=== PATIENT | female | born 1940 | race African-American/Black ===

== ENCOUNTER 2017-12-09 15:51 | Outpatient (CLI) | payer MEDICARE | END 2017-12-09 15:52 | disposition home or self-care (01) | LOC: BICMAMMO 15:51 | PROVIDERS: ATTEND Family Medicine | DX: Z12.31 Encounter for screening mammogram for malignant neoplasm of breast (principal) | CPT/HCPCS: 77063; 77067 ==

== ENCOUNTER 2019-08-17 07:06 | Observation (INO) | payer MEDICARE ==
--- NOTE | 2019-08-17 07:54 | RAD ---
EXAM: Chest Two Views 08/17/2019 7:51 AM HISTORY: Chest pain COMPARISON: October 23, 2011 FINDINGS: Heart: Stable mild cardiomegaly Pulmonary vessels: Stable mild pulmonary vascular congestion Costophrenic angles: Clear. Lungs: No acute airspace consolidation. Pneumothorax: None. Osseous structures:Intact. Additional findings: None. IMPRESSION: Cardiomegaly with mild pulmonary vascular congestion.
[2019-08-17 07:56] LABS: #Eosinphils 0.1 thou/uL (0.0-0.7); #Lymphocytes 2.1 thou/uL (1.20-3.40); #Monocytes 0.3 thou/uL (0.11-0.59); #Neutrophils 3.1 thou/uL (1.40-6.50); %Basophils 0.7 % (0.0-1.0); %Eosinophils 2.2 % (0.0-10.0); %Lymphocytes 36.4 % (21.0-51.0); %Monocytes 5.8 % (0.0-10.0); Mean Corpuscular HGB CONC 33.5 g/dL (32.0-36.0); Mean Corpuscular Hemoglobin 30.3 pg (27.0-31.0); Mean Corpuscular Volume 90.5 fL (78.0-98.0); Platelet Count 188 thou/uL (130-400); RBC Distribution Width 12.9 % (11.5-14.5); Red Blood Cell (RBC) Count 4.62 mill/uL (4.20-5.40); White Blood Cell (WBC) Count 5.6 thou/uL (4.8-10.8)
[2019-08-17 08:06] LABS: ALT (SGPT) 8 U/L (8-55); AST (SGOT) 14 U/L (5-34); Albumin 3.9 g/dL (3.4-4.8); Alkaline Phosphatase 114 U/L (40-110); Anion Gap 12 mmol/L (10-20); BUN (Urea Nitrogen) 28 mg/dL (9.8-20.1); Bilirubin, Total 0.5 mg/dL (0.2-1.2); CK (CPK) 54 U/L (29-168); Calc. Creatinine Clearance 0 mL/min (70-130); Calcium 9.7 mg/dL (7.8-10.44); Carbon Dioxide 26 mmol/L (23-31); Chloride 106 mmol/L (98-107); Estimated GFR-MDRD 47; Globulin 4.4 g/dL (2.4-3.5); Glucose 131 mg/dL (83-110); Magnesium 1.9 mg/dL (1.6-2.6); Potassium 3.3 mmol/L (3.5-5.1); Protein, Total 8.3 g/dL (6.0-8.3); Sodium 141 mmol/L (136-145)
[2019-08-17] MEDS ORDERED: Magnesium 2 GM/50 ML BAG (IN WATER) ONE (08:15)
[2019-08-17 08:26] LABS: CKMB 1.9 ng/mL (0-6.6)
[2019-08-17] MEDS ORDERED: Aspirin Chewable 81 MG TAB ONE (09:48)
[2019-08-17 11:11] LABS: Troponin I 0.072 ng/mL (< 0.028)
[2019-08-17] MEDS ORDERED: HYDROcodone/Acetaminophen 5/325 mg Tablet PO PRN ×2 (13:23)
[2019-08-17] MEDS ORDERED: Acetaminophen 325 MG TAB PO PRN ×2 (13:23→15:39)
[2019-08-17] MEDS ORDERED: Ondansetron ODT 4 MG TAB SL PRN (13:23)
[2019-08-17] MEDS ORDERED: Ondansetron PF 4 MG/2 ML Vial IVP PRN ×2 (13:23→15:39)
[2019-08-17] MEDS ORDERED: FLU VACC TS2019-20(65YR UP)/PF 180 MCG/0.5 ML SYRINGE IM ONE (13:30)
[2019-08-17 14:00] LABS: Troponin I 0.062 ng/mL (< 0.028)
[2019-08-17] MEDS ORDERED: Dextrose 5% in Water 1,000 ML IV PRN (15:39)
[2019-08-17] MEDS ORDERED: HumaLOG 300 UNITS/3 ML VIAL SC PRN ×2 (15:39)
[2019-08-17] MEDS ORDERED: Ondansetron ODT 4 MG TAB PO PRN (15:39)
[2019-08-17] MEDS ORDERED: Dextrose 50% Abboject 50 ML SYRINGE SLOW IVP PRN (15:39)
[2019-08-17] MEDS ORDERED: hydrALAZINE 20 MG/ML VIAL SLOW IVP PRN (15:39)
[2019-08-17 16:52] LABS: Free T4 (Free Thyroxine) 1.08 ng/dL (0.70-1.48); Thyroid Stimulating Hormone 1.3623 uIU/mL (0.35-4.94)
[2019-08-17 17:15] VITALS: BMI 27.8
--- NOTE | 2019-08-17 18:10 | CON ---
DATE OF CONSULTATION: 08/17/2019 REASON FOR CONSULTATION: Atrial fibrillation with RVR. HISTORY OF PRESENT ILLNESS: Ms. Infante is a pleasant 79-year-old female, who comes to the hospital for chest pain. She was seen in the ER and found to be in atrial fibrillation with RVR. She was started on Cardizem, and eventually she converted back to sinus rhythm on her own. Cardiology has been consulted for further evaluation and care. She has a history of stroke, appears to be lacunar secondary to uncontrolled hypertension. This in 2011. This is the first time she has ever been told she has atrial fibrillation or that it has ever been captured. Currently, she denies any chest pain, tightness, or pressure. No shortness of breath. She feels back to normal. PAST MEDICAL HISTORY: 1. History of CVA in 2011. Right-sided deficits. 2. Hypertension. 3. Type 2 diabetes. 4. Hyperlipidemia. 5. CVA. 6. Chronic kidney disease stage 3. SOCIAL HISTORY: , lives at home with family. No alcohol, tobacco, or drugs. OUTPATIENT MEDICATIONS: 1. Carvedilol 25 mg b.i.d. 2. Clonidine 0.1 mg p.o. t.i.d. 3. Simvastatin 10 mg q.p.m. 4. Lisinopril 40 mg a day. 5. Isosorbide mononitrate 60 mg a day. 6. Furosemide 20 mg b.i.d. 7. Clopidogrel 75 mg a day. 8. Trazodone 50 mg at bedtime. 9. Hydralazine 100 mg p.o. t.i.d. ALLERGIES: NO KNOWN DRUG ALLERGIES. PAST SURGICAL HISTORY: 1. Total knee replacement twice. 2. Hysterectomy. 3. Cholecystectomy. 4. Tubal ligation. FAMILY HISTORY: Early coronary artery disease in several family members. REVIEW OF SYSTEMS: A 12-point review of systems was done and was all negative unless stated in the history of present illness. PHYSICAL EXAMINATION: VITAL SIGNS: Temperature 97.2, pulse 57, respiratory rate 16, saturation 96% on room air, blood pressure 119/56. GENERAL: Awake, alert, oriented x3. No distress. HEENT: Normocephalic and atraumatic. NECK: Supple. LUNGS: Clear. CARDIOVASCULAR: S1 and S2. No S3 or S4. No murmurs. ABDOMEN: Soft. Positive bowel sounds. EXTREMITIES: No edema. SKIN: Warm and dry. LABORATORY DATA: Laboratory work was reviewed. CBC and chemistries were unremarkable except for potassium mildly low at 3.3, BUN 28, creatinine 1.3, GFR of 47. Troponin was in the indeterminate range of 0.03, 0.07, 0.06. TSH and free T4 were normal. Chest x-ray was unremarkable. ASSESSMENT AND PLAN: 1. New-onset atrial fibrillation, paroxysmal. 2. Rxcfs-[id number] systolic versus diastolic heart failure. 3. History of cerebrovascular accident. 4. Hypertension. PLAN: 1. Her CHADS-VASc score is at least 6 secondary to history of CVA female, hypertension, and age above 79. She would be a candidate for full anticoagulation. I will start Eliquis 5 mg twice a day. 2. We will await echocardiogram results before deciding on any antiarrhythmic therapy. Just continuing the current beta-bert dose. 3. We will start anticoagulation today with full-dose subcu Lovenox, and we will switch to Eliquis 5 mg b.i.d. on discharge. Concern is that if she has a low EF, she may need a heart catheterization sooner. Thank you for letting me to participate in the care of your patient. We will follow up. Job ID: [id number]
[2019-08-17] MEDS ORDERED: traZODone HCl 50 MG TAB PO SCH (21:00)
[2019-08-17] MEDS ORDERED: Simvastatin 20 MG TAB PO SCH (21:00)
[2019-08-17] MEDS ORDERED: Apixaban 5 MG TAB PO SCH (21:00)
[2019-08-17] MEDS: Furosemide 20 MG TAB PO SCH (21:09)
[2019-08-17] MEDS: Famotidine 20 MG TAB PO SCH (21:09)
[2019-08-17] MEDS: Enoxaparin Sodium 60 MG/0.6 ML SYRINGE SC SCH (21:09)
--- NOTE | 2019-08-17 21:11 | HP ---
PRIMARY CARE PHYSICIAN: Titus Rebollar MD CHIEF COMPLAINT: Chest pain. HISTORY OF PRESENT ILLNESS: Ms. Infante is a very pleasant 79-year-old female, who has a history of hypertension and diabetes mellitus type 2. She also has a history of a previous stroke about 7 years ago, which left her with right-sided weakness. She was in her usual state of health until 2 a.m. this morning. She says she awoke from sleep with pain in her chest. She says it was real bad and is like a real bad aching. She rated it about 8/10. She noticed a similar pain up into her jaw. She denies having any shortness of breath. There was no nausea, no vomiting. She did note some palpitations however. There was no dizziness, no lightheadedness. The pain continued until her daughter came to check on her. This was around 6:30. The pain was still there and she was brought to the emergency room. There, they gave her 4 aspirins and she says the medicine she believes for her potassium and the pain started to get better. Currently, she is chest-pain free. She also denies any PND. No orthopnea. No lower extremity edema. She has not had any episodes like this before that she is aware of. When she was seen in the ER, she was found to be in atrial fibrillation with rapid ventricular response. It appears as if she spontaneously converted and is being placed on observation for further evaluation. REVIEW OF SYSTEMS: All systems were reviewed and are negative except for that mentioned in the history of present illness. PAST MEDICAL HISTORY: Significant for hypertension, diabetes, cerebrovascular disease with right-sided weakness, chronic kidney disease, stage 3. ALLERGIES: NO KNOWN DRUG ALLERGIES. PAST SURGICAL HISTORY: She has had a total knee replacement x2, hysterectomy, cholecystectomy, cataract surgery, bilateral tubal ligation, and hysterectomy. SOCIAL HISTORY: She is . She is a nonsmoker and nondrinker. Her daughter lives with her and she has 3 children. Her daughter, Brittny is the surrogate decision maker and she would like to be a full code. FAMILY HISTORY: Significant for diabetes, hypertension, and heart disease. CURRENT MEDICATIONS: Include; 1. Carvedilol 25 mg twice daily. 2. Clonidine 0.1 mg t.i.d. 3. Simvastatin 20 mg p.o. at bedtime. 4. Lisinopril 40 mg p.o. daily. 5. Isosorbide mononitrate extended release 60 mg daily. 6. Plavix 75 mg p.o. daily. 7. Trazodone 50 mg at bedtime. PHYSICAL EXAMINATION: GENERAL: She is alert and oriented. She appears to be in no acute distress. She is well developed and well nourished. VITAL SIGNS: Blood pressure was 111/64, her heart rate in the ER was reported at 58, respiratory rate of 17, temperature is 97.9. HEENT: Pupils are equal, round, and reactive. Extraocular muscles are intact. Her sclerae anicteric. Throat, no erythema, no exudates. NECK: No adenopathy. No bruits. LUNGS: Clear to auscultation. There was no wheezing, no rales, no rhonchi. CARDIOVASCULAR: Heart tones are a bit distant. She had a normal S1 and S2. There was no S3 or S4. Just a very faint slight 2/6 systolic murmur. ABDOMEN: Obese, it is soft. Essentially nontender, nondistended. Positive for bowel sounds. No rebound. No guarding. No organomegaly. EXTREMITIES: There was no clubbing or cyanosis. No edema. No calf tenderness. No joint effusion. NEUROLOGIC: She does have some right upper and lower extremity weakness; however, she is able to lift both her right arm and right leg against gravity. There was some weakness against resistance. 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 SKIN AND INTEGUMENT: There was no major skin changes. No rashes. LABORATORY DATA: Her CBC is completely normal. Her chemistry; sodium 141, potassium 3.3, chloride is 106, CO2 is 26, BUN of 28, creatinine 1.32, glucose is 131. Troponin is 0.034. EKG with atrial fibrillation with a heart rate of 126, and she did have some T-wave inversions in 1 and aVL as well as laterally and that is by my reading. She had a chest x-ray demonstrating some mild cardiomegaly. In my opinion, she had some flattened diaphragms, but there was no effusions and essentially no infiltrates. ASSESSMENT: This is a pleasant 79-year-old female, who presents to the emergency room with atrial fibrillation. This converted spontaneously and fairly rapidly. However, since she has had a prior stroke and she has significant risk factors including hypertension and diabetes, we will consult Cardiology to see should she be placed on anticoagulation, which I suspect, so we will also check a thyroid function test and get an echocardiogram. 1. Hypertension. We will reconcile and restart her home medications as well as have some medications as needed. 2. Diabetes mellitus. Again, reconcile and restart her home medications as well as a diabetes sliding scale and chronic kidney disease. This appears to be at her baseline at stage 3. 3. The patient was placed on deep venous thrombosis and gastrointestinal prophylaxis. Job ID: [id number]
[2019-08-18] MEDS: Carvedilol 25 MG TAB PO SCH ×2 (00:08→08:59)
[2019-08-18] MEDS: hydrALAZINE 25 MG TAB PO SCH ×3 (00:09→14:40)
[2019-08-18] MEDS: cloNIDine 0.1 MG TAB PO SCH ×3 (00:09→14:39)
[2019-08-18 05:12] LABS: #Basophils 0.1 thou/uL (0.0-0.2); #Eosinphils 0.1 thou/uL (0.0-0.7); #Lymphocytes 1.7 thou/uL (1.20-3.40); #Monocytes 0.4 thou/uL (0.11-0.59); #Neutrophils 3.3 thou/uL (1.40-6.50); %Eosinophils 2.1 % (0.0-10.0); %Monocytes 7.4 % (0.0-10.0); %Neutrophils 58.6 % (42.0-75.0); Hemoglobin 12.3 g/dL (12.0-16.0); Mean Corpuscular HGB CONC 32.6 g/dL (32.0-36.0); Mean Corpuscular Hemoglobin 29.7 pg (27.0-31.0); Platelet Count 163 thou/uL (130-400); Red Blood Cell (RBC) Count 4.15 mill/uL (4.20-5.40); White Blood Cell (WBC) Count 5.6 thou/uL (4.8-10.8)
[2019-08-18 05:33] LABS: Anion Gap 10 mmol/L (10-20); BUN (Urea Nitrogen) 36 mg/dL (9.8-20.1); Calc. Creatinine Clearance 36 mL/min (70-130); Calcium 8.8 mg/dL (7.8-10.44); Carbon Dioxide 24 mmol/L (23-31); Chloride 107 mmol/L (98-107); Estimated GFR-MDRD 37; Glucose 108 mg/dL (83-110); Potassium 3.3 mmol/L (3.5-5.1); Sodium 138 mmol/L (136-145)
[2019-08-18] MEDS ORDERED: Potassium Chloride 20 MEQ TAB PO SCH ×2 (08:00→13:15)
[2019-08-18] MEDS ORDERED: Clopidogrel Bisulfate 75 MG TAB PO SCH (09:00)
[2019-08-18] MEDS ORDERED: Lisinopril 20 MG TAB PO SCH (09:00)
[2019-08-18] MEDS: Furosemide 20 MG TAB PO SCH (09:00)
[2019-08-18] MEDS: Famotidine 20 MG TAB PO SCH (09:00)
[2019-08-18] MEDS: Enoxaparin Sodium 60 MG/0.6 ML SYRINGE SC SCH (09:00)
--- NOTE | 2019-08-18 09:46 | PDOC.HOSPP ---
- Subjective Encounter Date: 08/18/19 Encounter Time: 09:44 Subjective: Ms. Infante was seen today in follow-up of new onset AFIB. She is back in sinus rhythm. She does not have any new complaints. - Objective Vital Signs & Weight: Vital Signs (12 hours) Temp Pulse Resp BP Pulse Ox 08/18/19 07:22 97.8 F 64 16 185/79 H 97 08/18/19 04:00 98.3 F 60 16 186/82 H 97 08/18/19 03:55 60 08/18/19 00:09 60 08/18/19 00:00 97.8 F 60 16 160/75 H 95 Weight Weight 178 lb I&O: 08/17/19 08/18/19 08/19/19 06:59 06:59 06:59 Intake Total 490 Output Total 100 Balance 390 Result Diagrams: 08/18/19 04:56 08/18/19 04:56 Additional Labs: Accuchecks 08/18/19 08/17/19 08/17/19 05:36 20:35 16:45 POC Glucose 99 114 H 148 H Hospitalist ROS - Medication Medications: Active Medications Generic Name Dose Route Start Last Admin Trade Name Freq PRN Reason Stop Dose Admin Carvedilol 25 mg 08/17/19 21:00 08/18/19 08:59 Coreg PO 25 mg BID ROMÁN Administration Clonidine 0.1 mg 08/17/19 21:00 08/18/19 09:00 Catapres PO 0.1 mg TID ROMÁN Administration Enoxaparin Sodium 60 mg 08/17/19 21:00 08/18/19 09:00 Lovenox SC 60 mg 0900,2100 ROMÁN Administration Famotidine 20 mg 08/17/19 21:00 08/18/19 09:00 Pepcid PO 20 mg BID ROMÁN Administration Furosemide 20 mg 08/17/19 21:00 08/18/19 09:00 Lasix PO 20 mg BID ROMÁN Administration Hydralazine HCl 10 mg 08/17/19 15:39 08/18/19 03:55 Apresoline SLOW IVP 10 mg Q4H PRN Administration SBP > 180 and HR < 70 Hydralazine HCl 100 mg 08/17/19 21:00 08/18/19 09:00 Apresoline PO 100 mg TID ROMÁN Administration Isosorbide Mononitrate 60 mg 08/18/19 09:00 08/18/19 09:00 Imdur PO 60 mg DAILY ROMÁN Administration Lisinopril 40 mg 08/18/19 09:00 08/18/19 09:00 Zestril PO 40 mg DAILY ROMÁN Administration Potassium Chloride 40 meq 08/18/19 08:00 08/18/19 08:59 K-Dur PO 08/18/19 10:00 40 meq NOW ROMÁN Administration Simvastatin 20 mg 08/17/19 21:00 08/17/19 21:09 Zocor PO 20 mg QPM ROMÁN Administration Trazodone HCl 50 mg 08/17/19 21:00 08/17/19 21:08 Desyrel PO 50 mg HS ROMÁN Administration - Exam Eye: PERRL Heart: RRR, no murmur, no gallops, no rubs, normal peripheral pulses Respiratory: CTAB, no wheezes, no rales, no ronchi, normal chest expansion, no tachypnea, normal percussion Gastrointestinal: soft, non-tender, non-distended, normal bowel sounds, no palpable masses, no hepatomegaly Extremities: no cyanosis, no edema Hosp A/P (1) Atrial fibrillation Code(s): I48.91 - UNSPECIFIED ATRIAL FIBRILLATION Status: Acute (2) CVA (cerebral vascular accident) Code(s): I63.9 - CEREBRAL INFARCTION, UNSPECIFIED Status: Chronic (3) Hypertension Code(s): I10 - ESSENTIAL (PRIMARY) HYPERTENSION Status: Chronic (4) Diabetes mellitus type 2 in nonobese Code(s): E11.9 - TYPE 2 DIABETES MELLITUS WITHOUT COMPLICATIONS Status: Chronic (5) Chronic kidney disease, stage 3 Code(s): N18.3 - CHRONIC KIDNEY DISEASE, STAGE 3 (MODERATE) Status: Chronic - Plan * Atrial Fibrillation- She has converted to sinus rhythm. Cardiology input appreciated * She will need full anticoagulation, and will go home on Eliquis- Lovenox for now * Await Echo results * HTN- blood pressure is elevated- her home medications have been re-started- will Observe through the day, and have PRN medications available * DM- blood glucose is stable * Chronic kidney disease- stable
--- NOTE | 2019-08-18 13:02 | PDOC.CPN ---
- Subjective Date: 08/18/19 Time: 13:01 Interval history: She is doing well. No angina. She remains in sinus rhythm. - Review of Systems General: denies: fever/chills, weight/appetite/sleep changes, night sweats, fatigue Respiratory: denies: cough, congestion, shortness of breath, exercise intolerance Cardiovascular: denies: chest pain, palpitation, edema, paroxysmal nocturnal dyspnea, orthopnea Gastrointestinal: denies: nausea, vomiting, diarrhea, constipation, abd pain, GI bleeding Musculoskeletal: denies: pain, tenderness, stiffness, swelling, arthritis/ arthralgias Neurological: reports: weakness. denies: numbness, syncope, seizure - Objective Allergies/Adverse Reactions: Allergies Allergy/AdvReac Type Severity Reaction Status Date / Time No Known Allergies Allergy Verified 05/28/14 15:26 Visit Medications: Current Medications Acetaminophen (Tylenol) 650 mg PO Q4H PRN PRN Reason: Headache/Fever/Mild Pain (1-3) Carvedilol (Coreg) 25 mg PO BID [facility] Last Admin: 08/18/19 08:59 Dose: 25 mg Clonidine (Catapres) 0.1 mg PO TID [facility] Last Admin: 08/18/19 09:00 Dose: 0.1 mg Dextrose/Water (Dextrose 50%) 25 gm SLOW IVP PRN PRN PRN Reason: Hypoglycemia Enoxaparin Sodium (Lovenox) 60 mg SC 0900,2100 [facility] Last Admin: 08/18/19 09:00 Dose: 60 mg Famotidine (Pepcid) 20 mg PO BID [facility] Last Admin: 08/18/19 09:00 Dose: 20 mg Furosemide (Lasix) 20 mg PO BID [facility] Last Admin: 08/18/19 09:00 Dose: 20 mg Glucagon (Glucagon) 1 mg IM PRN PRN PRN Reason: Hypoglycemia Hydralazine HCl (Apresoline) 10 mg SLOW IVP Q4H PRN PRN Reason: SBP > 180 and HR < 70 Last Admin: 08/18/19 03:55 Dose: 10 mg Hydralazine HCl (Apresoline) 100 mg PO TID [facility] Last Admin: 08/18/19 09:00 Dose: 100 mg Dextrose/Water (D5w) 1,000 mls @ 0 mls/hr IV .Q0M PRN PRN Reason: Hypoglycemia Insulin Human Lispro (Humalog) 0 units SC .MODERATE SLIDING SC PRN PRN Reason: Moderate Correctional Scale Insulin Human Lispro (Humalog) 0 units SC .BEDTIME SLIDING SC PRN PRN Reason: Bedtime Correctional Scale Isosorbide Mononitrate (Imdur) 60 mg PO DAILY [facility] Last Admin: 08/18/19 09:00 Dose: 60 mg Lisinopril (Zestril) 40 mg PO DAILY [facility] Last Admin: 08/18/19 09:00 Dose: 40 mg Ondansetron HCl (Zofran Odt) 4 mg PO Q6H PRN PRN Reason: Nausea/Vomiting Ondansetron HCl (Zofran) 4 mg IVP Q6H PRN PRN Reason: Nausea/Vomiting Simvastatin (Zocor) 20 mg PO QPM [facility] Last Admin: 08/17/19 21:09 Dose: 20 mg Trazodone HCl (Desyrel) 50 mg PO HS [facility] Last Admin: 08/17/19 21:08 Dose: 50 mg Vital Signs & Weight: Vital Signs Temp Pulse Resp BP Pulse Ox 08/18/19 11:38 98.4 F 71 16 156/75 H 100 08/18/19 07:22 97.8 F 64 16 185/79 H 97 08/18/19 04:00 98.3 F 60 16 186/82 H 97 08/18/19 03:55 60 Weight 178 lb - Physical Exam General: alert & oriented x3 HEENT: mucus membranes moist Neck: supple neck Cardiac: regular rate and rhythm Lungs: normal breath sounds Neuro: weakness Abdomen: active bowel sounds, soft, non-tender Extremities: no edema Skin: clear Musculoskeletal: no pain - Labs Result Diagrams: 08/18/19 04:56 08/18/19 04:56 Troponin/CKMB CK-MB (CK-2) 1.9 ng/mL (0-6.6) 08/17/19 07:28 Troponin I 0.062 ng/mL (< 0.028) H 08/17/19 13:25 - Telemetry Sinus rhythms and dysrhythmias: sinus rhythm - Assessment/Plan Assessment/Plan: 1. Paroxysmal afib 2. Hx of CVA 3. HTN 4. Hypokalemia PLAN: - Will give an extra dose of PO potassium on top of the dose she already had. - Awaiting echo results. If her EF is normal will start Flecainide and send home on Eliquis 5 mg BID.
[2019-08-18 15:33] VITALS: BP 142/66; TEMP 97.9
[2019-08-18] MEDS ORDERED: Apixaban 5 MG TAB PO SCH (21:00)
[2019-08-18] MEDS ORDERED: Flecainide 50 MG TAB PO SCH (21:00)
--- NOTE | 2019-08-19 03:25 | DIS ---
DATE OF ADMISSION: 08/17/2019 DATE OF DISCHARGE: 08/18/2019 PRIMARY CARE PHYSICIAN: Titus Rebollar MD DISCHARGE DIAGNOSES: 1. New onset atrial fibrillation. 2. Diabetes mellitus type 2. 3. Hypertension. 4. History of cerebrovascular accident with right hemiparesis. CODE STATUS: Full code. ALLERGIES: NO KNOWN DRUG ALLERGIES. PROCEDURES DONE DURING THE ADMISSION: The patient had an echocardiogram in which the ejection fraction was estimated at 60% to 65%. There was grade 1/3 diastolic dysfunction, some aortic valve sclerosis. HOSPITAL COURSE: Ms. Infante is a pleasant 79-year-old female who presented to the emergency room with chest pain. She was found to be in atrial fibrillation with rapid ventricular response. By the time she arrived to the ER, she spontaneously converted. However, since this is a new diagnosis, she was placed in observation. She was evaluated by Cardiology. An echocardiogram was done in which her ejection fraction was normal and her left atrial size was just mildly dilated. It was recommended that she be placed on flecainide as well as Eliquis. The Plavix will be discontinued due to the start of the Eliquis and discharged home with close followup with Dr. Cooper and also with Dr. Rebollar, her primary care physician. Job ID: [id number]
[2019-08-19] MEDS ORDERED: Famotidine 20 MG TAB PO SCH (09:00)
== END 2019-08-18 17:56 | disposition home or self-care (01) ==
LOC: ERS 07:06 → 2SW 13:06
PROVIDERS: ADMIT Internal Medicine; ATTEND Internal Medicine
DX: I48.0 Paroxysmal atrial fibrillation (principal); I69.351 Hemiplegia and hemiparesis following cerebral infarction affecting right dominant side; I13.10 Hypertensive heart and chronic kidney disease without heart failure, with stage 1 through stage 4 chronic kidney disease, or unspecified chronic kidney disease; I35.0 Nonrheumatic aortic (valve) stenosis; E11.22 Type 2 diabetes mellitus with diabetic chronic kidney disease; N18.3 Chronic kidney disease, stage 3 (moderate); Z79.02 Long term (current) use of antithrombotics/antiplatelets; Z79.899 Other long term (current) drug therapy; E87.6 Hypokalemia; E78.5 Hyperlipidemia, unspecified
CPT/HCPCS: 71046; 80048; 82550; 82553; 82962 ×2; 83735; 84439; 84484 ×2; 85025; 90662; 93005; 93306; 96365; 96372 ×2; 96375; 99285; G0008; G0378 ×3; 36415; 36416; 80053; 84443; 90471; J0360; J1650; J3475

== ENCOUNTER 2020-04-05 13:11 | Outpatient (CLI) | payer MEDICARE ==
--- NOTE | 2020-04-05 14:43 | MMO ---
Bilateral MAMMO Bilat Screen [facility]. CLINICAL HISTORY: Patient is 79 years old and is seen for screening. The patient has no family history of breast cancer. The patient has no personal history of cancer. VIEWS: The views performed were: bilateral craniocaudal with tomosynthesis and bilateral mediolateral oblique with tomosynthesis. FILMS COMPARED: The present examination has been compared to prior imaging studies performed at [facility] on 12/13/2014 and 12/09/2017, and at [facility] on 02/23/2008. This study has been interpreted with the assistance of computer-aided detection. MAMMOGRAM FINDINGS: There are scattered fibroglandular densities. There are no suspicious masses, suspicious calcifications, or new areas of architectural distortion. IMPRESSION: THERE IS NO MAMMOGRAPHIC EVIDENCE OF MALIGNANCY. A ROUTINE FOLLOW-UP MAMMOGRAM IN 1 YEAR IS RECOMMENDED. THE RESULTS OF THIS EXAM WERE SENT TO THE PATIENT. ACR BI-RADS Category 1 - Negative MAMMOGRAPHY NOTE: 1. A negative mammogram report should not delay a biopsy if a dominant of clinically suspicious mass is present. 2. Approximately 10% to 15% of breast cancers are not detected by mammography. 3. Adenosis and dense breasts may obscure an underlying neoplasm. Reported by: JOSE LUIS DUVALL MD Electonically Signed: [id number]
== END 2020-04-05 13:12 | disposition home or self-care (01) ==
LOC: BICMAMMO 13:11
PROVIDERS: ATTEND Family Medicine
DX: Z12.31 Encounter for screening mammogram for malignant neoplasm of breast (principal)
CPT/HCPCS: 36415; 77063; 77067; 80053; 83036

== ENCOUNTER 2022-04-08 11:22 | Outpatient (CLI) | payer MEDICARE | END 2022-04-08 11:23 | disposition home or self-care (01) | LOC: BICMAMMO 11:22 | PROVIDERS: ATTEND Family Medicine | DX: Z12.31 Encounter for screening mammogram for malignant neoplasm of breast (principal); Z80.3 Family history of malignant neoplasm of breast | CPT/HCPCS: 77063; 77067 ==

== ENCOUNTER 2023-08-02 20:07 | Emergency (ER) | payer MEDICARE ==
[~2023-08-02 20:07] MED LIST: Iopamidol 370 76% 100 ML VIAL ONE
[2023-08-02] MEDS ORDERED: hydrALAZINE 20 MG/ML VIAL ONE (20:22)
[2023-08-02] MEDS ORDERED: cloNIDine 0.1 MG TAB ONE (20:22)
[2023-08-02 20:36] LABS: #Eosinphils 0.1 thou/uL (0.0-0.7); #Monocytes 0.4 thou/uL (0.11-0.59); %Basophils 0.9 % (0.0-1.0); %Eosinophils 1.8 % (0.0-10.0); %Lymphocytes 45.1 % (21.0-51.0); %Monocytes 7.7 % (0.0-10.0); %Neutrophils 44.1 % (42.0-75.0); Hemoglobin 12.4 g/dL (12.0-16.0); Mean Corpuscular HGB CONC 32.6 g/dL (32.0-36.0); Mean Corpuscular Hemoglobin 30.1 pg (27.0-31.0); Mean Corpuscular Volume 92.2 fl (78.0-98.0); Mean Platelet Volume 11.3 fL (7.4-10.4); Platelet Count 172 10x3/uL (130-400); RBC Distribution Width 14.2 % (11.5-14.5); Red Blood Cell (RBC) Count 4.12 mill/uL (4.20-5.40); White Blood Cell (WBC) Count 4.5 10x3/uL (4.8-10.8)
[2023-08-02 20:57] LABS: INR-International Normal Ratio 1.8; PTT 32.4 sec (22.9-36.1); Prothrombin Time 21.2 sec (12.0-14.7)
[2023-08-02 21:08] LABS: ALT (SGPT) Less than 7 U/L (8-55); AST (SGOT) 13 U/L (5-34); Albumin 3.9 g/dL (3.4-4.8); Alkaline Phosphatase 86 U/L (40-110); Anion Gap 15 mmol/L (10-20); BUN (Urea Nitrogen) 40 mg/dL (9.8-20.1); Bilirubin, Total 0.2 mg/dL (0.2-1.2); Calc. Creatinine Clearance 0 mL/min (70-130); Calcium 8.7 mg/dL (7.8-10.44); Carbon Dioxide 21 mmol/L (23-31); Chloride 106 mmol/L (98-107); Estimated GFR 28; Globulin 3.7 g/dL (2.4-3.5); Glucose 125 mg/dL (83-110); Magnesium 2.1 mg/dL (1.6-2.6); Potassium 3.4 mmol/L (3.5-5.1); Protein, Total 7.6 g/dL (5.8-8.1); Sodium 139 mmol/L (136-145); Troponin I 0.017 ng/mL (< 0.028)
[2023-08-02 21:15] LABS: D-Dimer Test Less than 0.27 *mcg/mL (0.27-0.43)
== END 2023-08-02 22:51 | disposition home or self-care (01) ==
LOC: ERS 20:07
DX: I10 Essential (primary) hypertension (principal); R07.89 Other chest pain; Z87.891 Personal history of nicotine dependence; E11.9 Type 2 diabetes mellitus without complications; Z79.899 Other long term (current) drug therapy; Z79.01 Long term (current) use of anticoagulants
CPT/HCPCS: 71045; 71275; 74174; 80053; 83605; 83735; 83880; 84484; 85025; 85379; 85610; 85730; 86850; 86900; 86901; 93005; 94760; 96374; 99285; J0360; 36415; Q9967

== ENCOUNTER 2024-02-29 11:10 | Observation (INO) | payer MEDICARE ==
[2024-02-29] MEDS ORDERED: Aspirin Chewable 81 MG TAB ONE (12:44)
[2024-02-29 12:52] LABS: #Basophils 0.04 10x3/uL (0.0-0.2); %Basophils 0.9 % (0.0-1.0); %Eosinophils 1.8 % (0.0-10.0); %Monocytes 6.1 % (0.0-10.0); Hematocrit 37.2 % (36.0-47.0); Hemoglobin 12.4 g/dL (12.0-16.0); Mean Corpuscular HGB CONC 33.3 g/dL (32.0-36.0); Mean Corpuscular Hemoglobin 30.8 pg (27.0-31.0); Mean Corpuscular Volume 92.5 fL (78.0-98.0); Mean Platelet Volume 11.3 fL (7.4-10.4); Platelet Count 158 10x3/uL (130-400); RBC Distribution Width 13.9 % (11.5-14.5); Red Blood Cell (RBC) Count 4.02 mill/uL (4.20-5.40)
[2024-02-29 13:09] LABS: ALT (SGPT) Less than 5 U/L (8-55); AST (SGOT) 15 U/L (5-34); Albumin 3.2 g/dL (3.4-4.8); Alkaline Phosphatase 82 U/L (40-110); Anion Gap 13 mmol/L (10-20); BUN (Urea Nitrogen) 30 mg/dL (9.8-20.1); Bilirubin, Total 0.5 mg/dL (0.2-1.2); Calc. Creatinine Clearance 0 mL/min (70-130); Calcium 9.2 mg/dL (7.8-10.44); Carbon Dioxide 23 mmol/L (23-31); Chloride 108 mmol/L (98-107); Estimated GFR 26; Globulin 3.9 g/dL (2.4-3.5); Glucose 114 mg/dL (83-110); Lipase 16 U/L (8-78); Potassium 4.3 mmol/L (3.5-5.1); Protein, Total 7.1 g/dL (5.8-8.1); Sodium 140 mmol/L (136-145)
[2024-02-29] MEDS ORDERED: Furosemide 40 MG (4 mL) VIAL ONE (13:10)
[2024-02-29] MEDS ORDERED: Nitroglycerin 2% Ointment 1 INCH/1 GM Packet ONE (13:10)
[2024-02-29 13:12] LABS: Troponin I 0.025 ng/mL (< 0.028)
[2024-02-29] MEDS ORDERED: Acetaminophen 650 MG Suppository PR PRN (16:21)
[2024-02-29] MEDS ORDERED: Acetaminophen 325 MG TAB PO PRN (16:21)
[2024-02-29] MEDS ORDERED: Furosemide 40 MG (4 mL) VIAL SLOW IVP SCH (18:00)
[2024-02-29] MEDS: Furosemide 20 MG TAB PO SCH (18:07)
[2024-02-29 18:12] VITALS: BMI 25.8
[2024-02-29] MEDS ORDERED: Atropine Sulfate 1 mg/1 ml Vial IVP PRN (18:28)
[2024-02-29 19:04] LABS: Troponin I 0.028 ng/mL (< 0.028)
[2024-02-29] MEDS: hydrALAZINE 25 MG TAB PO SCH (19:54)
[2024-02-29] MEDS: cloNIDine 0.1 MG TAB PO SCH (19:55)
[2024-02-29] MEDS: Atorvastatin Calcium 10 MG TAB PO SCH (19:55)
[2024-02-29] MEDS ORDERED: Furosemide 20 MG TAB PO SCH (21:00)
[2024-03-01 04:48] LABS: #Basophils 0.03 10x3/uL (0.0-0.2); %Basophils 0.7 % (0.0-1.0); %Lymphocytes 38.3 % (21.0-51.0); %Monocytes 7.3 % (0.0-10.0); %Neutrophils 51.5 % (42.0-75.0); Hematocrit 37.2 % (36.0-47.0); Hemoglobin 12.2 g/dL (12.0-16.0); Mean Corpuscular HGB CONC 32.8 g/dL (32.0-36.0); Mean Corpuscular Hemoglobin 29.9 pg (27.0-31.0); Mean Corpuscular Volume 91.2 fL (78.0-98.0); Mean Platelet Volume 11.1 fL (7.4-10.4); Platelet Count 150 10x3/uL (130-400); RBC Distribution Width 14.3 % (11.5-14.5); Red Blood Cell (RBC) Count 4.08 mill/uL (4.20-5.40)
[2024-03-01 05:01] LABS: INR-International Normal Ratio 3.1; Prothrombin Time 32.4 sec (12.0-14.7)
[2024-03-01 05:22] LABS: Anion Gap 15 mmol/L (10-20); BUN (Urea Nitrogen) 30 mg/dL (9.8-20.1); Calc. Creatinine Clearance 30 mL/min (70-130); Calcium 8.8 mg/dL (7.8-10.44); Carbon Dioxide 23 mmol/L (23-31); Chloride 106 mmol/L (98-107); Estimated GFR 30; Glucose 100 mg/dL (83-110); Potassium 3.4 mmol/L (3.5-5.1); Sodium 141 mmol/L (136-145)
[2024-03-01] MEDS: Isosorbide Mononitrate 60 MG ER.TAB PO SCH (07:58)
[2024-03-01] MEDS ORDERED: Furosemide 20 MG TAB PO SCH (09:00)
[2024-03-01] MEDS: Potassium Chloride 20 MEQ TAB PO SCH (13:40)
[2024-03-01 15:27] VITALS: BP 149/66; TEMP 97.4
== END 2024-03-01 15:37 | disposition home or self-care (01) ==
LOC: ERS 11:10 → 2SW 14:44
PROVIDERS: ADMIT Internal Medicine; ATTEND Internal Medicine
DX: R00.1 Bradycardia, unspecified (principal); E11.22 Type 2 diabetes mellitus with diabetic chronic kidney disease; I13.0 Hypertensive heart and chronic kidney disease with heart failure and stage 1 through stage 4 chronic kidney disease, or unspecified chronic kidney disease; I50.33 Acute on chronic diastolic (congestive) heart failure; N18.4 Chronic kidney disease, stage 4 (severe); E78.5 Hyperlipidemia, unspecified; E87.6 Hypokalemia; E88.09 Other disorders of plasma-protein metabolism, not elsewhere classified; Z79.01 Long term (current) use of anticoagulants; Z79.899 Other long term (current) drug therapy; Z90.49 Acquired absence of other specified parts of digestive tract; Z90.710 Acquired absence of both cervix and uterus; Z96.659 Presence of unspecified artificial knee joint
CPT/HCPCS: 71045; 80048; 80053; 83690; 83880; 84484 ×2; 85025 ×2; 85610; 93005; 97139; G0378 ×3; J1940; 36415

== ENCOUNTER 2024-07-13 09:58 | Outpatient (CLI) | payer MEDICARE | END 2024-07-13 09:59 | disposition home or self-care (01) | LOC: BICRAD 09:58 | PROVIDERS: ATTEND Family Medicine | DX: M25.571 Pain in right ankle and joints of right foot (principal); M85.871 Other specified disorders of bone density and structure, right ankle and foot ==